=== PATIENT | female | born 1945 | race Caucasian/White ===

== ENCOUNTER 2018-03-25 08:20 | Inpatient (IN) | payer OTHER ==
[~2018-03-25] VITALS: Ht 167.6 cm; Wt 70.3 kg
[2018-03-25] MEDS ORDERED: KETOROLAC 15 MG/ML VIAL. IV ONE (09:15)
[2018-03-25] MEDS ORDERED: ONDANSETRON PF 4 MG/2 ML VIAL. IV ONE (09:15)
[2018-03-25] MEDS ORDERED: fentaNYL PF VIAL 100 MCG/2 ML VIAL IV ONE (09:15)
[2018-03-25 09:27] LABS: BASO # 0.1 x10^3/uL (0.0-0.2); BASO % 1 % (0-3); EOS # 0.1 x10^3/uL (0.0-0.7); EOS % 1 % (0-3); HEMATOCRIT 39.8 % (36.0-47.0); HEMOGLOBIN 13.8 g/dL (12.0-15.5); LYMPH # 1.9 x10^3/uL (1.0-4.8); LYMPH % 21 % (24-48); MEAN CORPUSCULAR HEMOGLOBIN 32 pg (25-35); MEAN CORPUSCULAR HGB CONC 35 g/dL (31-37); MEAN CORPUSCULAR VOLUME 91 fL (79-100); MONO # 0.4 x10^3/uL (0.0-1.1); MONO % 4 % (0-9); NEUT # 6.6 x10^3uL (1.8-7.7); NEUT % 74 % (31-73); PLATELET COUNT 247 x10^3/uL (140-400); RED BLOOD COUNT 4.36 x10^6/uL (3.50-5.40); RED CELL DISTRIBUTION WIDTH 12.9 % (11.5-14.5)
[2018-03-25] MEDS ORDERED: IV NORMAL SALINE 1000ML BAG 1,000 ML IV ONE ×2 (09:30→12:00)
[2018-03-25 09:32] LABS: BILIRUBIN,URINE NEGATIVE (NEG); CLARITY,URINE CLOUDY; COLOR,URINE YELLOW; NITRITE,URINE NEGATIVE (NEG); PROTEIN,URINE NEGATIVE (NEG-TRACE); UROBILINOGEN,URINE 0.2 mg/dL (0.2 mg/dL)
[2018-03-25 09:39] LABS: CALCIUM 9.6 mg/dL (8.5-10.1); CREATININE 1.2 mg/dL (0.6-1.0); GFR 44.3; POTASSIUM 3.8 mmol/L (3.5-5.1)
[2018-03-25 09:44] LABS: BACTERIA,URINE MANY /HPF (0-FEW); RBC,URINE TNTC /HPF (0-2); SQUAMOUS EPITHELIAL CELL,UR FEW /LPF
[2018-03-25 09:45] LABS: ALBUMIN 3.8 g/dL (3.4-5.0); TOTAL BILIRUBIN 0.7 mg/dL (0.2-1.0); TOTAL PROTEIN 7.7 g/dL (6.4-8.2)
--- NOTE | 2018-03-25 10:35 | RAD ---
Examination: CT of the abdomen pelvis without contrast HISTORY: History of right flank pain, blood in the urine COMPARISON: None available TECHNIQUE: Axial CT images of the abdomen pelvis were performed without contrast. Coronal and sagittal reformats are performed. Exposure: One or more of the following individualized dose reduction techniques were utilized for this examination: 1. Automated exposure control 2. Adjustment of the mA and/or kV according to patient size 3. Use of iterative reconstruction technique FINDINGS: Linear bibasilar lung airspace opacities likely atelectasis or infiltrates. No evidence of free air identified in the abdomen. The evaluation of the solid organs is limited due to lack of IV contrast. The evaluation of bowel is limited due to lack of oral contrast. The visualized noncontrasted liver, spleen, adrenals grossly appears unremarkable. The gallbladder is mildly distended. The stomach is mildly distended. The visualized pancreas grossly appears unremarkable. The small bowel is nondilated. Appendix is normal. Feces and gas noted in the colon. Moderate right-sided hydronephrosis and hydroureter identified with a 5 mm calculus at the junction of the right mid and distal one third of the ureter. Urinary bladder is mildly distended. The evaluation of the pelvis is limited due to streak artifact from bilateral hip prosthesis. Mild fat stranding identified about the bilateral kidneys, right greater than left. Moderate degenerative changes lumbar spine. Impression: 1. A 5 mm calculus identified in the right ureter at its mid and distal one third ureteral junction causing moderate right-sided hydronephrosis and hydroureter. Electronically signed by: Noble Calles MD (03/25/2018 10:32 AM) [place] [id number]
[2018-03-25] MEDS ORDERED: fentaNYL PF VIAL 100 MCG/2 ML VIAL IV PRN (11:30)
[2018-03-25] MEDS ORDERED: ONDANSETRON PF 4 MG/2 ML VIAL. IV PRN ×2 (11:30→12:00)
--- NOTE | 2018-03-25 11:32 | PHYS DOC ---
Past Medical History Past Medical History: Depression, GERD, Other Additional Past Medical Histor: vertigo Past Surgical History: Other Additional Past Surgical Histo: cardiac ablation Alcohol Use: Rarely Drug Use: None Adult General Chief Complaint Chief Complaint: BLOOD IN URINE HPI HPI Patient is a 72 year old F who presents with right flank pain and hematuria. Patient reports her hematuria started 2 days ago. She reports she started having severe pain in her right flank at about 4 AM this morning. It woke her from sleep. She reports history of kidney stones, but has never had to have a urologic procedure. She denies any fever or chills. She is actively vomiting on way to room from triage. Review of Systems Review of Systems Constitutional: Denies fever or chills [] Respiratory: Denies cough or shortness of breath [] Cardiovascular: Denies chest pain or palpitations GI: Denies abdominal pain. Reports nausea and vomiting and right flank pain : Denies dysuria. Reports hematuria Integument: Denies rash or skin lesions [] Neurologic: Denies headache, focal weakness or sensory changes [] All other systems were reviewed and found to be within normal limits, except as documented in this note. Current Medications Current Medications Current Medications Medications (Trade) Dose Ordered Sig/Sloane Start Time Stop Time Status Last Admin Dose Admin Fentanyl Citrate (Fentanyl 2ml Vial) 50 mcg 1X ONCE 03/25/18 09:15 03/25/18 09:21 DC 03/25/18 09:32 50 MCG Ketorolac Tromethamine (Toradol 15mg Vial) 15 mg 1X ONCE 03/25/18 09:15 03/25/18 09:21 DC 03/25/18 09:31 15 MG Ondansetron HCl (Zofran) 4 mg 1X ONCE 03/25/18 09:15 03/25/18 09:21 DC 03/25/18 09:29 4 MG Sodium Chloride 1,000 ml @ 1,000 mls/hr 1X ONCE 03/25/18 09:30 03/25/18 10:29 DC 03/25/18 09:29 1,000 MLS/HR Allergies Allergies Allergies Coded Allergies Type Severity Reaction Last Updated Verified codeine Adverse Reaction Mild "It makes me want to cry" 03/25/18 Yes Physical Exam Physical Exam Constitutional: Well developed, well nourished, no acute distress, non-toxic appearance. [] HENT: Normocephalic, atraumatic Eyes: PERRLA, EOMI, conjunctiva normal, no discharge. [] Neck: Normal range of motion, no tenderness, supple, no stridor. [] Cardiovascular:Heart rate regular rhythm, no murmur [] Lungs & Thorax: Bilateral breath sounds clear to auscultation [] Abdomen: Bowel sounds normal, soft, no tenderness Skin: Warm, dry, no erythema, no rash. [] Back: Right CVA tenderness on palpation. [] Neurologic: Alert and oriented X 3, normal motor function, normal sensory function, no focal deficits noted. [] Psychologic: Affect normal, judgement normal, mood normal. [] Current Patient Data Vital Signs Vital Signs Date Time Temp Pulse Resp B/P (MAP) Pulse Ox O2 Delivery O2 Flow Rate FiO2 03/25/18 11:00 60 18 125/59 (81) 98 Room Air 03/25/18 10:00 1.0 03/25/18 09:02 98.1 98.1 Lab Values Laboratory Tests Test 03/25/18 09:05 03/25/18 09:11 Urine Collection Type Unknown Urine Color Yellow Urine Clarity Cloudy Urine pH 6.0 Urine Specific [place] 1.025 Urine Protein Negative mg/dL (NEG-TRACE) Urine Glucose (UA) Negative mg/dL (NEG) Urine Ketones (Stick) Negative mg/dL (NEG) Urine Blood Large (NEG) Urine Nitrite Negative (NEG) Urine Bilirubin Negative (NEG) Urine Urobilinogen Dipstick 0.2 mg/dL (0.2 mg/dL) Urine Leukocyte Esterase Trace (NEG) Urine RBC Tntc /HPF (0-2) Urine WBC 1-4 /HPF (0-4) Urine Squamous Epithelial Cells Few /LPF Urine Bacteria Many /HPF (0-FEW) Urine Mucus Slight /LPF White Blood Count 9.0 x10^3/uL (4.0-11.0) Red Blood Count 4.36 x10^6/uL (3.50-5.40) Hemoglobin 13.8 g/dL (12.0-15.5) Hematocrit 39.8 % (36.0-47.0) Mean Corpuscular Volume 91 fL (79-100) Mean Corpuscular Hemoglobin 32 pg (25-35) Mean Corpuscular Hemoglobin Concent 35 g/dL (31-37) Red Cell Distribution Width 12.9 % (11.5-14.5) Platelet Count 247 x10^3/uL (140-400) Neutrophils (%) (Auto) 74 % (31-73) H Lymphocytes (%) (Auto) 21 % (24-48) L Monocytes (%) (Auto) 4 % (0-9) Eosinophils (%) (Auto) 1 % (0-3) Basophils (%) (Auto) 1 % (0-3) Neutrophils # (Auto) 6.6 x10^3uL (1.8-7.7) Lymphocytes # (Auto) 1.9 x10^3/uL (1.0-4.8) Monocytes # (Auto) 0.4 x10^3/uL (0.0-1.1) Eosinophils # (Auto) 0.1 x10^3/uL (0.0-0.7) Basophils # (Auto) 0.1 x10^3/uL (0.0-0.2) Sodium Level 143 mmol/L (136-145) Potassium Level 3.8 mmol/L (3.5-5.1) Chloride Level 104 mmol/L (98-107) Carbon Dioxide Level 28 mmol/L (21-32) Anion Gap 11 (6-14) Blood Urea Nitrogen 14 mg/dL (7-20) Creatinine 1.2 mg/dL (0.6-1.0) H Estimated GFR (Cockcroft-Gault) 44.3 BUN/Creatinine Ratio 12 (6-20) Glucose Level 140 mg/dL (70-99) H Calcium Level 9.6 mg/dL (8.5-10.1) Total Bilirubin 0.7 mg/dL (0.2-1.0) Aspartate Amino Transferase (AST) 21 U/L (15-37) Alanine Aminotransferase (ALT) 22 U/L (14-59) Alkaline Phosphatase 70 U/L (46-116) Total Protein 7.7 g/dL (6.4-8.2) Albumin 3.8 g/dL (3.4-5.0) Albumin/Globulin Ratio 1.0 (1.0-1.7) Laboratory Tests 03/25/18 09:11 Laboratory Tests 03/25/18 09:11 EKG EKG [] Radiology/Procedures Radiology/Procedures [] Course & Med Decision Making Course & Med Decision Making Pertinent Labs and Imaging studies reviewed. (See chart for details) Discussed with Dr. Rodriguez, accepts admission Discussed with urology, they will see patient in consult. Plan: Admit Dragon Disclaimer Dragon Disclaimer This electronic medical record was generated, in whole or in part, using a voice recognition dictation system. Departure Departure Impression: Primary Impression: Right kidney stone Additional Impression: UTI (urinary tract infection) Disposition: ADMITTED INPATIENT Admitting Physician: Maricruz Rodriguez Condition: IMPROVED Referrals: UNKNOWN PCP NAME (PCP) Problem Qualifiers Additional Impression: UTI (urinary tract infection) Urinary tract infection type: acute cystitis Hematuria presence: without hematuria Qualified Codes: N30.00 - Acute cystitis without hematuria JOE CAMACHO [employer] Mar 25, 2018 11:32
[2018-03-25] MEDS ORDERED: ACETAMINOPHEN 500 MG TABLET PO PRN (12:00)
[2018-03-25] MEDS: KETOROLAC 30 MG/ML VIAL. IV SCH ×3 (12:00→23:59)
[2018-03-25] MEDS ORDERED: ACETAMINOPHEN/CODEINE 300/30MG TABLET. PO PRN (12:00)
--- NOTE | 2018-03-25 12:16 | PDOC1 ---
History and Physical Date of Admission Date of Admission DATE: 03/25/18 TIME: 12:08 Identification/Chief Complaint Chief Complaint Right flank pain Source Source: Caregiver, Chart review, Patient History of Present Illness History of Present Illness Very pleasant 72-year-old female who is from out of town, she drove 1200 are 1500 miles here, started to have gross hematuria last 5 or 6 days, culminated today with right flank pain, 7 out of 10 in its most severe form. Found to have a 5 mm kidney stone distal UPJ with some hydronephrosis but normal creatinine. Also may be some UTI. She has a history of kidney stone 12 years ago that did not need any urologic intervention. She is better after IV pain management at the ER, 2 doses of IV pain medicines. She was nauseated and vomiting earlier today. No fever, normal white count. We'll admit for kidney stone with urologic consult, nothing by mouth for now until urology rounds. SHe recently had ablation for A. fib done in September 2017 and is now on Pradaxa She seen at ER, currently comfortable 2 out of 10 pain scale Past Medical History Cardiovascular: AFIB Past Surgical History Past Surgical History: Total hip replacement Family History Family History: Heart Disease, Hypertension Social History Smoke: No ALCOHOL: none Drugs: None Current Medications Current Medications Current Medications Fentanyl Citrate (Fentanyl 2ml Vial) 50 mcg 1X ONCE IV Last administered on at 09:32; Start 03/25/18 at 09:15; Stop 03/25/18 at 09:21; Status DC Ondansetron HCl (Zofran) 4 mg 1X ONCE IV Last administered on 03/25/18at 09:29 ; Start 03/25/18 at 09:15; Stop 03/25/18 at 09:21; Status DC Ketorolac Tromethamine (Toradol 15mg Vial) 15 mg 1X ONCE IV Last administered on 03/25/18at 09:31; Start 03/25/18 at 09:15; Stop 03/25/18 at 09:21; Status DC Sodium Chloride 1,000 ml @ 1,000 mls/hr 1X ONCE IV Last administered on 03/25at 09:29; Start 03/25/18 at 09:30; Stop 03/25/18 at 10:29; Status DC Ceftriaxone Sodium 50 ml @ 100 mls/hr 1X ONCE IV Last administered on at 11:55; Start 03/25/18 at 11:30; Stop 03/25/18 at 11:59; Status DC Ondansetron HCl (Zofran) 4 mg PRN Q8HRS PRN IV NAUSEA/VOMITING; Start at 11:30; Stop 03/25/18 at 11:58; Status DC Fentanyl Citrate (Fentanyl 2ml Vial) 50 mcg PRN Q2HR PRN IV PAIN; Start at 11:30; Stop 03/26/18 at 11:29 Ketorolac Tromethamine (Toradol 30mg Vial) 15 mg Q6HRS IV ; Start 03/25/18 at 12:00; Stop 03/30/18 at 11:59 Sodium Chloride 1,000 ml @ 75 mls/hr 1X ONCE IV ; Start 03/25/18 at 12:00; Stop 03/26/18 at 01:19; Status Cancel Ondansetron HCl (Zofran) 4 mg PRN Q6HRS PRN IV NAUSEA/VOMITING; Start at 12:00 Sodium Chloride 1,000 ml @ 125 mls/hr Q8H IV ; Start 03/25/18 at 13:00 Acetaminophen (Tylenol) 500 mg PRN Q6HRS PRN PO MILD PAIN / TEMP; Start at 12:00 Acetaminophen/ Codeine Phosphate (Tylenol #3) 1 tab PRN Q6HRS PRN PO MODERATE TO SEVERE PAIN; Start 03/25/18 at 12:00 Tamsulosin HCl (Flomax) 0.4 mg DAILY PO ; Start 03/26/18 at 09:00; Status UNV Tamsulosin HCl (Flomax) 0.4 mg QHS PO ; Start 03/25/18 at 21:00; Status UNV Ceftriaxone Sodium 1 gm/ Dextrose 50 ml @ 100 mls/hr Q24H IV ; Start 03/25/18 at 12:00; Status UNV Ceftriaxone Sodium (Rocephin) 1 gm Q24H IVP ; Start 03/26/18 at 12:00 Allergies Allergies: Coded Allergies: codeine (Verified Adverse Reaction, Mild, "It makes me want to cry", 03/25) ROS Review of System As per history of present illness, the rest of ROS 14 point negative Physical Exam General: Alert, Oriented X3, Cooperative, No acute distress HEENT: Atraumatic, PERRLA, EOMI Lungs: Clear to auscultation, Normal air movement Heart: S1S2, RRR, no thrills, no rubs, no gallops, no murmurs Cardiovascular: S1, S2 Breasts: Normal, Rt breast nml w/o mass, Lt breast nml w/o mass, Nipples normal Abdomen: Normal bowel sounds, Soft, No tenderness, No hepatosplenomegaly, No masses, Other (CV angle tenderness on kidney punch,rt) Extremities: No clubbing, No cyanosis, No edema, Normal pulses, No tenderness/ swelling Skin: No rashes, No breakdown, No significant lesion Neuro: Normal gait, Normal speech, Strength at 5/5 X4 ext, Normal tone, Sensation intact, Cranial nerves 3-12 NL, Reflexes 2+ Psych/Mental Status: Mental status NL, Mood NL Vitals Vitals Vital Signs Date Time Temp Pulse Resp B/P (MAP) Pulse Ox O2 Delivery O2 Flow Rate FiO2 03/25/18 09:32 24 98 Room Air 03/25/18 09:02 98.1 60 155/71 (99) 98.1 Labs Labs Laboratory Tests Test 03/25/18 09:05 03/25/18 09:11 Urine Collection Type Unknown Urine Color Yellow Urine Clarity Cloudy Urine pH 6.0 Urine Specific [place] 1.025 Urine Protein Negative mg/dL (NEG-TRACE) Urine Glucose (UA) Negative mg/dL (NEG) Urine Ketones (Stick) Negative mg/dL (NEG) Urine Blood Large (NEG) Urine Nitrite Negative (NEG) Urine Bilirubin Negative (NEG) Urine Urobilinogen Dipstick 0.2 mg/dL (0.2 mg/dL) Urine Leukocyte Esterase Trace (NEG) Urine RBC Tntc /HPF (0-2) Urine WBC 1-4 /HPF (0-4) Urine Squamous Epithelial Cells Few /LPF Urine Bacteria Many /HPF (0-FEW) Urine Mucus Slight /LPF White Blood Count 9.0 x10^3/uL (4.0-11.0) Red Blood Count 4.36 x10^6/uL (3.50-5.40) Hemoglobin 13.8 g/dL (12.0-15.5) Hematocrit 39.8 % (36.0-47.0) Mean Corpuscular Volume 91 fL (79-100) Mean Corpuscular Hemoglobin 32 pg (25-35) Mean Corpuscular Hemoglobin Concent 35 g/dL (31-37) Red Cell Distribution Width 12.9 % (11.5-14.5) Platelet Count 247 x10^3/uL (140-400) Neutrophils (%) (Auto) 74 % (31-73) Lymphocytes (%) (Auto) 21 % (24-48) Monocytes (%) (Auto) 4 % (0-9) Eosinophils (%) (Auto) 1 % (0-3) Basophils (%) (Auto) 1 % (0-3) Neutrophils # (Auto) 6.6 x10^3uL (1.8-7.7) Lymphocytes # (Auto) 1.9 x10^3/uL (1.0-4.8) Monocytes # (Auto) 0.4 x10^3/uL (0.0-1.1) Eosinophils # (Auto) 0.1 x10^3/uL (0.0-0.7) Basophils # (Auto) 0.1 x10^3/uL (0.0-0.2) Sodium Level 143 mmol/L (136-145) Potassium Level 3.8 mmol/L (3.5-5.1) Chloride Level 104 mmol/L (98-107) Carbon Dioxide Level 28 mmol/L (21-32) Anion Gap 11 (6-14) Blood Urea Nitrogen 14 mg/dL (7-20) Creatinine 1.2 mg/dL (0.6-1.0) Estimated GFR (Cockcroft-Gault) 44.3 BUN/Creatinine Ratio 12 (6-20) Glucose Level 140 mg/dL (70-99) Calcium Level 9.6 mg/dL (8.5-10.1) Total Bilirubin 0.7 mg/dL (0.2-1.0) Aspartate Amino Transf (AST/SGOT) 21 U/L (15-37) Alanine Aminotransferase (ALT/SGPT) 22 U/L (14-59) Alkaline Phosphatase 70 U/L (46-116) Total Protein 7.7 g/dL (6.4-8.2) Albumin 3.8 g/dL (3.4-5.0) Albumin/Globulin Ratio 1.0 (1.0-1.7) Laboratory Tests Test 03/25/18 09:05 03/25/18 09:11 Urine Collection Type Unknown Urine Color Yellow Urine Clarity Cloudy Urine pH 6.0 Urine Specific [place] 1.025 Urine Protein Negative mg/dL (NEG-TRACE) Urine Glucose (UA) Negative mg/dL (NEG) Urine Ketones (Stick) Negative mg/dL (NEG) Urine Blood Large (NEG) Urine Nitrite Negative (NEG) Urine Bilirubin Negative (NEG) Urine Urobilinogen Dipstick 0.2 mg/dL (0.2 mg/dL) Urine Leukocyte Esterase Trace (NEG) Urine RBC Tntc /HPF (0-2) Urine WBC 1-4 /HPF (0-4) Urine Squamous Epithelial Cells Few /LPF Urine Bacteria Many /HPF (0-FEW) Urine Mucus Slight /LPF White Blood Count 9.0 x10^3/uL (4.0-11.0) Red Blood Count 4.36 x10^6/uL (3.50-5.40) Hemoglobin 13.8 g/dL (12.0-15.5) Hematocrit 39.8 % (36.0-47.0) Mean Corpuscular Volume 91 fL (79-100) Mean Corpuscular Hemoglobin 32 pg (25-35) Mean Corpuscular Hemoglobin Concent 35 g/dL (31-37) Red Cell Distribution Width 12.9 % (11.5-14.5) Platelet Count 247 x10^3/uL (140-400) Neutrophils (%) (Auto) 74 % (31-73) Lymphocytes (%) (Auto) 21 % (24-48) Monocytes (%) (Auto) 4 % (0-9) Eosinophils (%) (Auto) 1 % (0-3) Basophils (%) (Auto) 1 % (0-3) Neutrophils # (Auto) 6.6 x10^3uL (1.8-7.7) Lymphocytes # (Auto) 1.9 x10^3/uL (1.0-4.8) Monocytes # (Auto) 0.4 x10^3/uL (0.0-1.1) Eosinophils # (Auto) 0.1 x10^3/uL (0.0-0.7) Basophils # (Auto) 0.1 x10^3/uL (0.0-0.2) Sodium Level 143 mmol/L (136-145) Potassium Level 3.8 mmol/L (3.5-5.1) Chloride Level 104 mmol/L (98-107) Carbon Dioxide Level 28 mmol/L (21-32) Anion Gap 11 (6-14) Blood Urea Nitrogen 14 mg/dL (7-20) Creatinine 1.2 mg/dL (0.6-1.0) Estimated GFR (Cockcroft-Gault) 44.3 BUN/Creatinine Ratio 12 (6-20) Glucose Level 140 mg/dL (70-99) Calcium Level 9.6 mg/dL (8.5-10.1) Total Bilirubin 0.7 mg/dL (0.2-1.0) Aspartate Amino Transf (AST/SGOT) 21 U/L (15-37) Alanine Aminotransferase (ALT/SGPT) 22 U/L (14-59) Alkaline Phosphatase 70 U/L (46-116) Total Protein 7.7 g/dL (6.4-8.2) Albumin 3.8 g/dL (3.4-5.0) Albumin/Globulin Ratio 1.0 (1.0-1.7) VTE Prophylaxis Ordered VTE Prophylaxis Devices: Yes VTE Pharmacological Prophylaxi: Yes Assessment/Plan Assessment/Plan 5 millimeter distal third ureteral junction stone with moderate hydronephrosis UTI A. fib, status post ablation, on Pradaxa (september 2017) PLAN: nothing By mouth IV fluids 125 mL an hour Flomax Rocephin Urine culture Urology consult Awaiting home meds-but we are holding Pradaxa for now seen at [facility] MD Mar 25, 2018 12:16
[2018-03-25 12:38] VITALS: BP 138/51
[2018-03-25] MEDS: IV NORMAL SALINE 1000ML BAG 1,000 ML IV SCH ×2 (13:16→20:39)
--- NOTE | 2018-03-25 13:24 | PDOC2 ---
UROLOGY CONSULT Date of Admission DATE: 03/25/18 TIME: 13:19 Reason for Consult: stone Chief Complaint right renal colic Source: Patient one day right renal colic and GH. CT a/p with 5mm distal stone w hydro. UA with bacteria cr 1.2 Pain is well controlled on my encounter. Passed a stone 12 years ago. Liver in [place], [place]. ROS ROS: RESPIRATORY: Shortness of breath denies. Cough denies. UROLOGY: Denies blood in urine. Denies difficulty urinating Past Surgical History: Total hip replacement Current Medications Current Medications Fentanyl Citrate (Fentanyl 2ml Vial) 50 mcg 1X ONCE IV Last administered on at 09:32; Start 03/25/18 at 09:15; Stop 03/25/18 at 09:21; Status DC Ondansetron HCl (Zofran) 4 mg 1X ONCE IV Last administered on 03/25/18at 09:29 ; Start 03/25/18 at 09:15; Stop 03/25/18 at 09:21; Status DC Ketorolac Tromethamine (Toradol 15mg Vial) 15 mg 1X ONCE IV Last administered on 03/25/18at 09:31; Start 03/25/18 at 09:15; Stop 03/25/18 at 09:21; Status DC Sodium Chloride 1,000 ml @ 1,000 mls/hr 1X ONCE IV Last administered on 03/25at 09:29; Start 03/25/18 at 09:30; Stop 03/25/18 at 10:29; Status DC Ceftriaxone Sodium 50 ml @ 100 mls/hr 1X ONCE IV Last administered on at 11:55; Start 03/25/18 at 11:30; Stop 03/25/18 at 11:59; Status DC Ondansetron HCl (Zofran) 4 mg PRN Q8HRS PRN IV NAUSEA/VOMITING; Start at 11:30; Stop 03/25/18 at 11:58; Status DC Fentanyl Citrate (Fentanyl 2ml Vial) 50 mcg PRN Q2HR PRN IV PAIN; Start at 11:30; Stop 03/26/18 at 11:29 Ketorolac Tromethamine (Toradol 30mg Vial) 15 mg Q6HRS IV Last administered on 03/25/18at 12:00; Start 03/25/18 at 12:00; Stop 03/30/18 at 11:59 Sodium Chloride 1,000 ml @ 75 mls/hr 1X ONCE IV ; Start 03/25/18 at 12:00; Stop 03/26/18 at 01:19; Status Cancel Ondansetron HCl (Zofran) 4 mg PRN Q6HRS PRN IV NAUSEA/VOMITING; Start at 12:00 Sodium Chloride 1,000 ml @ 125 mls/hr Q8H IV Last administered on 03/25/18at 13:16; Start 03/25/18 at 13:00 Acetaminophen (Tylenol) 500 mg PRN Q6HRS PRN PO MILD PAIN / TEMP; Start at 12:00 Acetaminophen/ Codeine Phosphate (Tylenol #3) 1 tab PRN Q6HRS PRN PO MODERATE TO SEVERE PAIN; Start 03/25/18 at 12:00 Tamsulosin HCl (Flomax) 0.4 mg DAILY PO ; Start 03/26/18 at 09:00; Status UNV Tamsulosin HCl (Flomax) 0.4 mg QHS PO ; Start 03/25/18 at 21:00 Ceftriaxone Sodium 1 gm/ Dextrose 50 ml @ 100 mls/hr Q24H IV ; Start 03/25/18 at 12:00; Status UNV Ceftriaxone Sodium (Rocephin) 1 gm Q24H IVP ; Start 03/26/18 at 12:00 Allergies: Coded Allergies: codeine (Verified Adverse Reaction, Mild, "It makes me want to cry", 03/25) Physical Examination PHYSICAL EXAMINATION: GENERAL: Gen. appearance: No acute distress. Mood/affect: Pleasant. HEENT: Head: Normocephalic, atraumatic. Airway Impairment: No. CHEST: Shape and expansion: Normal. Expansion: Normal. SKIN: General: Warm. Color: Good. GENITOURINARY:External genitalia - wnl. NEUROLOGICAL: Mental status: Alert and oriented 3. Language: Normal. VITALS Vital Signs Date Time Temp Pulse Resp B/P (MAP) Pulse Ox O2 Delivery O2 Flow Rate FiO2 03/25/18 12:38 97.8 56 16 138/51 (80) 95 Room Air 97.8 03/25/18 10:00 1.0 Labs Laboratory Tests Test 03/25/18 09:05 03/25/18 09:11 Urine Collection Type Unknown Urine Color Yellow Urine Clarity Cloudy Urine pH 6.0 Urine Specific [place] 1.025 Urine Protein Negative mg/dL (NEG-TRACE) Urine Glucose (UA) Negative mg/dL (NEG) Urine Ketones (Stick) Negative mg/dL (NEG) Urine Blood Large (NEG) Urine Nitrite Negative (NEG) Urine Bilirubin Negative (NEG) Urine Urobilinogen Dipstick 0.2 mg/dL (0.2 mg/dL) Urine Leukocyte Esterase Trace (NEG) Urine RBC Tntc /HPF (0-2) Urine WBC 1-4 /HPF (0-4) Urine Squamous Epithelial Cells Few /LPF Urine Bacteria Many /HPF (0-FEW) Urine Mucus Slight /LPF White Blood Count 9.0 x10^3/uL (4.0-11.0) Red Blood Count 4.36 x10^6/uL (3.50-5.40) Hemoglobin 13.8 g/dL (12.0-15.5) Hematocrit 39.8 % (36.0-47.0) Mean Corpuscular Volume 91 fL (79-100) Mean Corpuscular Hemoglobin 32 pg (25-35) Mean Corpuscular Hemoglobin Concent 35 g/dL (31-37) Red Cell Distribution Width 12.9 % (11.5-14.5) Platelet Count 247 x10^3/uL (140-400) Neutrophils (%) (Auto) 74 % (31-73) Lymphocytes (%) (Auto) 21 % (24-48) Monocytes (%) (Auto) 4 % (0-9) Eosinophils (%) (Auto) 1 % (0-3) Basophils (%) (Auto) 1 % (0-3) Neutrophils # (Auto) 6.6 x10^3uL (1.8-7.7) Lymphocytes # (Auto) 1.9 x10^3/uL (1.0-4.8) Monocytes # (Auto) 0.4 x10^3/uL (0.0-1.1) Eosinophils # (Auto) 0.1 x10^3/uL (0.0-0.7) Basophils # (Auto) 0.1 x10^3/uL (0.0-0.2) Sodium Level 143 mmol/L (136-145) Potassium Level 3.8 mmol/L (3.5-5.1) Chloride Level 104 mmol/L (98-107) Carbon Dioxide Level 28 mmol/L (21-32) Anion Gap 11 (6-14) Blood Urea Nitrogen 14 mg/dL (7-20) Creatinine 1.2 mg/dL (0.6-1.0) Estimated GFR (Cockcroft-Gault) 44.3 BUN/Creatinine Ratio 12 (6-20) Glucose Level 140 mg/dL (70-99) Calcium Level 9.6 mg/dL (8.5-10.1) Total Bilirubin 0.7 mg/dL (0.2-1.0) Aspartate Amino Transf (AST/SGOT) 21 U/L (15-37) Alanine Aminotransferase (ALT/SGPT) 22 U/L (14-59) Alkaline Phosphatase 70 U/L (46-116) Total Protein 7.7 g/dL (6.4-8.2) Albumin 3.8 g/dL (3.4-5.0) Albumin/Globulin Ratio 1.0 (1.0-1.7) Laboratory Tests Test 03/25/18 09:05 03/25/18 09:11 Urine Collection Type Unknown Urine Color Yellow Urine Clarity Cloudy Urine pH 6.0 Urine Specific [place] 1.025 Urine Protein Negative mg/dL (NEG-TRACE) Urine Glucose (UA) Negative mg/dL (NEG) Urine Ketones (Stick) Negative mg/dL (NEG) Urine Blood Large (NEG) Urine Nitrite Negative (NEG) Urine Bilirubin Negative (NEG) Urine Urobilinogen Dipstick 0.2 mg/dL (0.2 mg/dL) Urine Leukocyte Esterase Trace (NEG) Urine RBC Tntc /HPF (0-2) Urine WBC 1-4 /HPF (0-4) Urine Squamous Epithelial Cells Few /LPF Urine Bacteria Many /HPF (0-FEW) Urine Mucus Slight /LPF White Blood Count 9.0 x10^3/uL (4.0-11.0) Red Blood Count 4.36 x10^6/uL (3.50-5.40) Hemoglobin 13.8 g/dL (12.0-15.5) Hematocrit 39.8 % (36.0-47.0) Mean Corpuscular Volume 91 fL (79-100) Mean Corpuscular Hemoglobin 32 pg (25-35) Mean Corpuscular Hemoglobin Concent 35 g/dL (31-37) Red Cell Distribution Width 12.9 % (11.5-14.5) Platelet Count 247 x10^3/uL (140-400) Neutrophils (%) (Auto) 74 % (31-73) Lymphocytes (%) (Auto) 21 % (24-48) Monocytes (%) (Auto) 4 % (0-9) Eosinophils (%) (Auto) 1 % (0-3) Basophils (%) (Auto) 1 % (0-3) Neutrophils # (Auto) 6.6 x10^3uL (1.8-7.7) Lymphocytes # (Auto) 1.9 x10^3/uL (1.0-4.8) Monocytes # (Auto) 0.4 x10^3/uL (0.0-1.1) Eosinophils # (Auto) 0.1 x10^3/uL (0.0-0.7) Basophils # (Auto) 0.1 x10^3/uL (0.0-0.2) Sodium Level 143 mmol/L (136-145) Potassium Level 3.8 mmol/L (3.5-5.1) Chloride Level 104 mmol/L (98-107) Carbon Dioxide Level 28 mmol/L (21-32) Anion Gap 11 (6-14) Blood Urea Nitrogen 14 mg/dL (7-20) Creatinine 1.2 mg/dL (0.6-1.0) Estimated GFR (Cockcroft-Gault) 44.3 BUN/Creatinine Ratio 12 (6-20) Glucose Level 140 mg/dL (70-99) Calcium Level 9.6 mg/dL (8.5-10.1) Total Bilirubin 0.7 mg/dL (0.2-1.0) Aspartate Amino Transf (AST/SGOT) 21 U/L (15-37) Alanine Aminotransferase (ALT/SGPT) 22 U/L (14-59) Alkaline Phosphatase 70 U/L (46-116) Total Protein 7.7 g/dL (6.4-8.2) Albumin 3.8 g/dL (3.4-5.0) Albumin/Globulin Ratio 1.0 (1.0-1.7) Images ct a/p as above. Assessment/Plan 5mm right distal stone. mild hydro. agree w ivf, abx for bacteruria. -recheck ua in am. flomax for distal stone. if af vssn and ua wnl, may do URS if not passed by tomorrow. Past Medical History: Depression, GERD, Other Additional Past Medical Histor: vertigo FERNANDA COTE MD Mar 25, 2018 13:24
[2018-03-25 15:00] VITALS: BP 106/56
[2018-03-25] MEDS ORDERED: CITA10TA4 PO (17:08)
[2018-03-25] MEDS ORDERED: DABI150C PO (17:08)
[2018-03-25] MEDS ORDERED: OMEP20CA9 PO (17:08)
[2018-03-25] MEDS ORDERED: MECL25TA3 PO (17:08)
[2018-03-25] MEDS ORDERED: TEMA15CA PO (17:08)
[2018-03-25 19:00] VITALS: BP 105/50
[2018-03-25] MEDS: LACTOBACILLUS RHAMNOSUS GG 1 CAPSULE. PO SCH (20:38)
[2018-03-25] MEDS ORDERED: TAMSULOSIN 0.4 MG CAP.ER.24H. PO SCH (21:00)
[2018-03-25 22:59] VITALS: BP 124/50
[2018-03-26 03:00] VITALS: BP 121/68
[2018-03-26] MEDS: IV NORMAL SALINE 1000ML BAG 1,000 ML IV SCH ×2 (04:15→11:36)
[2018-03-26 05:05] LABS: BASO % 1 % (0-3); EOS # 0.1 x10^3/uL (0.0-0.7); EOS % 2 % (0-3); HEMATOCRIT 32.9 % (36.0-47.0); HEMOGLOBIN 11.3 g/dL (12.0-15.5); LYMPH # 1.7 x10^3/uL (1.0-4.8); LYMPH % 32 % (24-48); MEAN CORPUSCULAR HEMOGLOBIN 32 pg (25-35); MEAN CORPUSCULAR HGB CONC 34 g/dL (31-37); MEAN CORPUSCULAR VOLUME 93 fL (79-100); MONO # 0.4 x10^3/uL (0.0-1.1); MONO % 7 % (0-9); NEUT # 3.2 x10^3uL (1.8-7.7); NEUT % 59 % (31-73); PLATELET COUNT 163 x10^3/uL (140-400); RED BLOOD COUNT 3.53 x10^6/uL (3.50-5.40); RED CELL DISTRIBUTION WIDTH 13.3 % (11.5-14.5); WHITE BLOOD COUNT 5.4 x10^3/uL (4.0-11.0)
[2018-03-26 05:59] LABS: ALBUMIN 2.9 g/dL (3.4-5.0); ALBUMIN/GLOBULIN RATIO 0.9 (1.0-1.7); CALCIUM 8.2 mg/dL (8.5-10.1); CREATININE 1.3 mg/dL (0.6-1.0); GFR 40.4; POTASSIUM 3.9 mmol/L (3.5-5.1); TOTAL BILIRUBIN 0.5 mg/dL (0.2-1.0)
[2018-03-26] MEDS: KETOROLAC 30 MG/ML VIAL. IV SCH ×2 (06:16→11:36)
[2018-03-26 07:00] VITALS: BP 104/47
--- NOTE | 2018-03-26 08:51 | PDOC ---
JJ GARCIA WORD PROCESSOR TECHNICIAN 03/26/18 0851: SUBJECTIVE Subjective Patient is still hurting, had a rough night and wants surgery. She has not seen anything come out in her urine. She is NPO currently and has been since midnight. OBJECTIVE Objective Physical Exam: General appearance: Alert and Oriented, sitting in chair Head: Normocephalic, without obvious abnormality Eyes: conjunctivae/corneas clear. PERRL, EOM's intact. Fundi benign Back: + CVA pain on the right, none on the left. Lungs: regular respirations, non labored breathing Abdomen: Non-tender. Bowel sounds normal. No masses, no organomegaly Vital Signs Vital Signs Date Time Temp Pulse Resp B/P (MAP) Pulse Ox O2 Delivery O2 Flow Rate FiO2 03/26/18 03:00 97.7 53 18 121/68 (85) 93 Room Air 97.7 03/25/18 22:59 98.0 98 18 124/50 (74) 94 Room Air 1.0 98.0 03/25/18 19:00 98.2 53 18 105/50 (68) 90 Room Air 98.2 03/25/18 16:53 Room Air 03/25/18 15:00 98.0 57 16 106/56 (73) 96 Room Air 98.0 03/25/18 12:38 97.8 56 16 138/51 (80) 95 Room Air 97.8 03/25/18 11:30 60 18 124/56 (78) 98 Room Air 03/25/18 11:00 60 18 125/59 (81) 98 Room Air 03/25/18 10:30 58 18 152/58 (89) 98 Room Air 03/25/18 10:00 60 18 136/64 (88) 98 Nasal Cannula 1.0 03/25/18 09:32 24 98 Room Air 03/25/18 09:30 58 18 140/62 (88) 98 Room Air 03/25/18 09:02 98.1 60 24 155/71 (99) 98 Room Air 98.1 I & O Intake and Output 03/26/18 07:00 Intake Total 2500 ml Output Total 750 ml Balance 1750 ml Intake Oral 500 ml IV Total 2000 ml Output Urine Total 750 ml # Voids 2 # Bowel Movements 1 PHYSICAL EXAM Physical Exam Physical Exam: General appearance: Alert and Oriented, sitting in chair Head: Normocephalic, without obvious abnormality Eyes: conjunctivae/corneas clear. PERRL, EOM's intact. Fundi benign Back: + CVA pain on the right, none on the left. Lungs: regular respirations, non labored breathing Abdomen: Non-tender. Bowel sounds normal. No masses, no organomegaly ASSESSMENT/PLAN Assessment/Plan Pt has a 5 mm calculus identified in the right ureter at its mid and distal one third ureteral junction causing moderate right-sided hydronephrosis and hydroureter. She had a rough night and is still having quite a bit of pain. She is requesting a surgery. Reviewed case with Dr. Ruano, who has agreed to do Ureteroscopy with laser and stent placement at 1400 today. Consents entered for RN to obtain signature later. Pt has Rocephin ordered for noon, which should be adequate antibiotic coverage. Continue IVF, to strain urine for now. Discussed plan with attending RN. Explained risks/benefits of procedure to patient; all questions answered. Problems: (1) UTI (urinary tract infection) (2) Right kidney stone COMMENT Lab Laboratory Tests Test 03/25/18 09:05 03/25/18 09:11 03/26/18 03:45 Urine Collection Type Unknown Urine Color Yellow Urine Clarity Cloudy Urine pH 6.0 Urine Specific [place] 1.025 Urine Protein Negative mg/dL (NEG-TRACE) Urine Glucose (UA) Negative mg/dL (NEG) Urine Ketones (Stick) Negative mg/dL (NEG) Urine Blood Large (NEG) Urine Nitrite Negative (NEG) Urine Bilirubin Negative (NEG) Urine Urobilinogen Dipstick 0.2 mg/dL (0.2 mg/dL) Urine Leukocyte Esterase Trace (NEG) Urine RBC Tntc /HPF (0-2) Urine WBC 1-4 /HPF (0-4) Urine Squamous Epithelial Cells Few /LPF Urine Bacteria Many /HPF (0-FEW) Urine Mucus Slight /LPF White Blood Count 9.0 x10^3/uL (4.0-11.0) 5.4 x10^3/uL (4.0-11.0) Red Blood Count 4.36 x10^6/uL (3.50-5.40) 3.53 x10^6/uL (3.50-5.40) Hemoglobin 13.8 g/dL (12.0-15.5) 11.3 g/dL (12.0-15.5) Hematocrit 39.8 % (36.0-47.0) 32.9 % (36.0-47.0) Mean Corpuscular Volume 91 fL (79-100) 93 fL (79-100) Mean Corpuscular Hemoglobin 32 pg (25-35) 32 pg (25-35) Mean Corpuscular Hemoglobin Concent 35 g/dL (31-37) 34 g/dL (31-37) Red Cell Distribution Width 12.9 % (11.5-14.5) 13.3 % (11.5-14.5) Platelet Count 247 x10^3/uL (140-400) 163 x10^3/uL (140-400) Neutrophils (%) (Auto) 74 % (31-73) 59 % (31-73) Lymphocytes (%) (Auto) 21 % (24-48) 32 % (24-48) Monocytes (%) (Auto) 4 % (0-9) 7 % (0-9) Eosinophils (%) (Auto) 1 % (0-3) 2 % (0-3) Basophils (%) (Auto) 1 % (0-3) 1 % (0-3) Neutrophils # (Auto) 6.6 x10^3uL (1.8-7.7) 3.2 x10^3uL (1.8-7.7) Lymphocytes # (Auto) 1.9 x10^3/uL (1.0-4.8) 1.7 x10^3/uL (1.0-4.8) Monocytes # (Auto) 0.4 x10^3/uL (0.0-1.1) 0.4 x10^3/uL (0.0-1.1) Eosinophils # (Auto) 0.1 x10^3/uL (0.0-0.7) 0.1 x10^3/uL (0.0-0.7) Basophils # (Auto) 0.1 x10^3/uL (0.0-0.2) 0.0 x10^3/uL (0.0-0.2) Sodium Level 143 mmol/L (136-145) 146 mmol/L (136-145) Potassium Level 3.8 mmol/L (3.5-5.1) 3.9 mmol/L (3.5-5.1) Chloride Level 104 mmol/L (98-107) 110 mmol/L (98-107) Carbon Dioxide Level 28 mmol/L (21-32) 26 mmol/L (21-32) Anion Gap 11 (6-14) 10 (6-14) Blood Urea Nitrogen 14 mg/dL (7-20) 14 mg/dL (7-20) Creatinine 1.2 mg/dL (0.6-1.0) 1.3 mg/dL (0.6-1.0) Estimated GFR (Cockcroft-Gault) 44.3 40.4 BUN/Creatinine Ratio 12 (6-20) 11 (6-20) Glucose Level 140 mg/dL (70-99) 92 mg/dL (70-99) Calcium Level 9.6 mg/dL (8.5-10.1) 8.2 mg/dL (8.5-10.1) Total Bilirubin 0.7 mg/dL (0.2-1.0) 0.5 mg/dL (0.2-1.0) Aspartate Amino Transf (AST/SGOT) 21 U/L (15-37) 22 U/L (15-37) Alanine Aminotransferase (ALT/SGPT) 22 U/L (14-59) 20 U/L (14-59) Alkaline Phosphatase 70 U/L (46-116) 55 U/L (46-116) Total Protein 7.7 g/dL (6.4-8.2) 6.0 g/dL (6.4-8.2) Albumin 3.8 g/dL (3.4-5.0) 2.9 g/dL (3.4-5.0) Albumin/Globulin Ratio 1.0 (1.0-1.7) 0.9 (1.0-1.7) Imaging CT ABD/Pelvis done 03/25/18: 1. A 5 mm calculus identified in the right ureter at its mid and distal one third ureteral junction causing moderate right-sided hydronephrosis and hydroureter. MARIE RUANO MD 03/26/18 0623: ASSESSMENT/PLAN Assessment/Plan Patient seen and examined. Agree with assessment and plan. CT images reviewed - 5 mm distal right ureter stone. I reviewed management options with the patient. She wants to proceed with right ureteroscopy, laser of stone, stent placement. Risks of bleeding, infection, need for additional procedures, injury to urologic structures, anesthesia issues discussed and she wants to proceed. Consent signed, all questions answered. Problem Qualifiers (1) UTI (urinary tract infection): Urinary tract infection type: acute cystitis Hematuria presence: without hematuria Qualified Codes: N30.00 - Acute cystitis without hematuria JJ GARCIA APRN Mar 26, 2018 08:51 MARIE RUANO MD Mar 26, 2018 14:06
[2018-03-26] MEDS ORDERED: IOHEXOL 300 MG/ML 100ML VIAL. ONE (08:52)
[2018-03-26] MEDS ORDERED: TAMSULOSIN 0.4 MG CAP.ER.24H. PO SCH (09:00)
[2018-03-26] MEDS: LACTOBACILLUS RHAMNOSUS GG 1 CAPSULE. PO SCH (09:00)
[2018-03-26] MEDS ORDERED: IV RINGERS,LACTATED 1000ML 1,000 ML IV SCH (09:40)
[2018-03-26] MEDS ORDERED: LIDOCAINE 1% PF 2 ML VIAL. ID PRN (09:45)
[2018-03-26] MEDS ORDERED: PROCHLORPERAZINE 10 MG/2 ML VIAL. IV PRN (09:45)
[2018-03-26] MEDS ORDERED: MORPHINE SULFATE 2 MG/ML VIAL. IV PRN (09:45)
[2018-03-26] MEDS ORDERED: fentaNYL PF VIAL 100 MCG/2 ML VIAL IV PRN ×2 (09:45)
[2018-03-26] MEDS ORDERED: HYDROmorphone 2 MG/ML VIAL IV PRN (09:45)
[2018-03-26 11:00] VITALS: BP 107/57
--- NOTE | 2018-03-26 11:00 | PDOC ---
PROGRESS NOTES Chief Complaint Chief Complaint 5 millimeter distal third ureteral junction stone with moderate hydronephrosis UTI A. fib, status post ablation, on Pradaxa (September 2017) History of Present Illness History of Present Illness Pt has not yet passed kidney stone. She is scheduled to have cystoscopy today at 2 PM. Currently on narcotics and not complaining of any pain at this time. Pt seen and examined Pt alert and oriented; affect appropriate VSS DW nursing Vitals Vitals Vital Signs Date Time Temp Pulse Resp B/P (MAP) Pulse Ox O2 Delivery O2 Flow Rate FiO2 03/26/18 07:00 97.9 58 20 104/47 (66) 94 Room Air 97.9 03/25/18 22:59 1.0 Physical Exam General: Alert, Oriented X3, Cooperative, No acute distress Abdomen: Normal bowel sounds, Soft, No tenderness, No hepatosplenomegaly, No masses, Other (CV angle tenderness on kidney punch,rt) Extremities: No clubbing, No cyanosis, No edema, Normal pulses, No tenderness/ swelling Skin: No rashes, No breakdown, No significant lesion Labs LABS Laboratory Tests Test 03/26/18 03:45 White Blood Count 5.4 x10^3/uL (4.0-11.0) Red Blood Count 3.53 x10^6/uL (3.50-5.40) Hemoglobin 11.3 g/dL (12.0-15.5) Hematocrit 32.9 % (36.0-47.0) Mean Corpuscular Volume 93 fL (79-100) Mean Corpuscular Hemoglobin 32 pg (25-35) Mean Corpuscular Hemoglobin Concent 34 g/dL (31-37) Red Cell Distribution Width 13.3 % (11.5-14.5) Platelet Count 163 x10^3/uL (140-400) Neutrophils (%) (Auto) 59 % (31-73) Lymphocytes (%) (Auto) 32 % (24-48) Monocytes (%) (Auto) 7 % (0-9) Eosinophils (%) (Auto) 2 % (0-3) Basophils (%) (Auto) 1 % (0-3) Neutrophils # (Auto) 3.2 x10^3uL (1.8-7.7) Lymphocytes # (Auto) 1.7 x10^3/uL (1.0-4.8) Monocytes # (Auto) 0.4 x10^3/uL (0.0-1.1) Eosinophils # (Auto) 0.1 x10^3/uL (0.0-0.7) Basophils # (Auto) 0.0 x10^3/uL (0.0-0.2) Sodium Level 146 mmol/L (136-145) Potassium Level 3.9 mmol/L (3.5-5.1) Chloride Level 110 mmol/L (98-107) Carbon Dioxide Level 26 mmol/L (21-32) Anion Gap 10 (6-14) Blood Urea Nitrogen 14 mg/dL (7-20) Creatinine 1.3 mg/dL (0.6-1.0) Estimated GFR (Cockcroft-Gault) 40.4 BUN/Creatinine Ratio 11 (6-20) Glucose Level 92 mg/dL (70-99) Calcium Level 8.2 mg/dL (8.5-10.1) Total Bilirubin 0.5 mg/dL (0.2-1.0) Aspartate Amino Transf (AST/SGOT) 22 U/L (15-37) Alanine Aminotransferase (ALT/SGPT) 20 U/L (14-59) Alkaline Phosphatase 55 U/L (46-116) Total Protein 6.0 g/dL (6.4-8.2) Albumin 2.9 g/dL (3.4-5.0) Albumin/Globulin Ratio 0.9 (1.0-1.7) Review of Systems Review of Systems Pt denies any pain, denies any weakness. Assessment and Plan Assessmemt and Plan Assessment: 5 millimeter distal third ureteral junction stone with moderate hydronephrosis UTI A. fib, status post ablation, on Pradaxa (September 2017 Plan: PRN narcotics for pain F/u urology; appreciate input Awaiting cystoscopy Probable d/c post-cystoscopy, pending urology approval Comment Review of Relevant I have reviewed the following items cece (where applicable) has been applied. Labs Laboratory Tests Test 03/25/18 09:05 03/25/18 09:11 03/26/18 03:45 Urine Collection Type Unknown Urine Color Yellow Urine Clarity Cloudy Urine pH 6.0 Urine Specific [place] 1.025 Urine Protein Negative mg/dL (NEG-TRACE) Urine Glucose (UA) Negative mg/dL (NEG) Urine Ketones (Stick) Negative mg/dL (NEG) Urine Blood Large (NEG) Urine Nitrite Negative (NEG) Urine Bilirubin Negative (NEG) Urine Urobilinogen Dipstick 0.2 mg/dL (0.2 mg/dL) Urine Leukocyte Esterase Trace (NEG) Urine RBC Tntc /HPF (0-2) Urine WBC 1-4 /HPF (0-4) Urine Squamous Epithelial Cells Few /LPF Urine Bacteria Many /HPF (0-FEW) Urine Mucus Slight /LPF White Blood Count 9.0 x10^3/uL (4.0-11.0) 5.4 x10^3/uL (4.0-11.0) Red Blood Count 4.36 x10^6/uL (3.50-5.40) 3.53 x10^6/uL (3.50-5.40) Hemoglobin 13.8 g/dL (12.0-15.5) 11.3 g/dL (12.0-15.5) Hematocrit 39.8 % (36.0-47.0) 32.9 % (36.0-47.0) Mean Corpuscular Volume 91 fL (79-100) 93 fL (79-100) Mean Corpuscular Hemoglobin 32 pg (25-35) 32 pg (25-35) Mean Corpuscular Hemoglobin Concent 35 g/dL (31-37) 34 g/dL (31-37) Red Cell Distribution Width 12.9 % (11.5-14.5) 13.3 % (11.5-14.5) Platelet Count 247 x10^3/uL (140-400) 163 x10^3/uL (140-400) Neutrophils (%) (Auto) 74 % (31-73) 59 % (31-73) Lymphocytes (%) (Auto) 21 % (24-48) 32 % (24-48) Monocytes (%) (Auto) 4 % (0-9) 7 % (0-9) Eosinophils (%) (Auto) 1 % (0-3) 2 % (0-3) Basophils (%) (Auto) 1 % (0-3) 1 % (0-3) Neutrophils # (Auto) 6.6 x10^3uL (1.8-7.7) 3.2 x10^3uL (1.8-7.7) Lymphocytes # (Auto) 1.9 x10^3/uL (1.0-4.8) 1.7 x10^3/uL (1.0-4.8) Monocytes # (Auto) 0.4 x10^3/uL (0.0-1.1) 0.4 x10^3/uL (0.0-1.1) Eosinophils # (Auto) 0.1 x10^3/uL (0.0-0.7) 0.1 x10^3/uL (0.0-0.7) Basophils # (Auto) 0.1 x10^3/uL (0.0-0.2) 0.0 x10^3/uL (0.0-0.2) Sodium Level 143 mmol/L (136-145) 146 mmol/L (136-145) Potassium Level 3.8 mmol/L (3.5-5.1) 3.9 mmol/L (3.5-5.1) Chloride Level 104 mmol/L (98-107) 110 mmol/L (98-107) Carbon Dioxide Level 28 mmol/L (21-32) 26 mmol/L (21-32) Anion Gap 11 (6-14) 10 (6-14) Blood Urea Nitrogen 14 mg/dL (7-20) 14 mg/dL (7-20) Creatinine 1.2 mg/dL (0.6-1.0) 1.3 mg/dL (0.6-1.0) Estimated GFR (Cockcroft-Gault) 44.3 40.4 BUN/Creatinine Ratio 12 (6-20) 11 (6-20) Glucose Level 140 mg/dL (70-99) 92 mg/dL (70-99) Calcium Level 9.6 mg/dL (8.5-10.1) 8.2 mg/dL (8.5-10.1) Total Bilirubin 0.7 mg/dL (0.2-1.0) 0.5 mg/dL (0.2-1.0) Aspartate Amino Transf (AST/SGOT) 21 U/L (15-37) 22 U/L (15-37) Alanine Aminotransferase (ALT/SGPT) 22 U/L (14-59) 20 U/L (14-59) Alkaline Phosphatase 70 U/L (46-116) 55 U/L (46-116) Total Protein 7.7 g/dL (6.4-8.2) 6.0 g/dL (6.4-8.2) Albumin 3.8 g/dL (3.4-5.0) 2.9 g/dL (3.4-5.0) Albumin/Globulin Ratio 1.0 (1.0-1.7) 0.9 (1.0-1.7) Laboratory Tests Test 03/26/18 03:45 White Blood Count 5.4 x10^3/uL (4.0-11.0) Red Blood Count 3.53 x10^6/uL (3.50-5.40) Hemoglobin 11.3 g/dL (12.0-15.5) Hematocrit 32.9 % (36.0-47.0) Mean Corpuscular Volume 93 fL (79-100) Mean Corpuscular Hemoglobin 32 pg (25-35) Mean Corpuscular Hemoglobin Concent 34 g/dL (31-37) Red Cell Distribution Width 13.3 % (11.5-14.5) Platelet Count 163 x10^3/uL (140-400) Neutrophils (%) (Auto) 59 % (31-73) Lymphocytes (%) (Auto) 32 % (24-48) Monocytes (%) (Auto) 7 % (0-9) Eosinophils (%) (Auto) 2 % (0-3) Basophils (%) (Auto) 1 % (0-3) Neutrophils # (Auto) 3.2 x10^3uL (1.8-7.7) Lymphocytes # (Auto) 1.7 x10^3/uL (1.0-4.8) Monocytes # (Auto) 0.4 x10^3/uL (0.0-1.1) Eosinophils # (Auto) 0.1 x10^3/uL (0.0-0.7) Basophils # (Auto) 0.0 x10^3/uL (0.0-0.2) Sodium Level 146 mmol/L (136-145) Potassium Level 3.9 mmol/L (3.5-5.1) Chloride Level 110 mmol/L (98-107) Carbon Dioxide Level 26 mmol/L (21-32) Anion Gap 10 (6-14) Blood Urea Nitrogen 14 mg/dL (7-20) Creatinine 1.3 mg/dL (0.6-1.0) Estimated GFR (Cockcroft-Gault) 40.4 BUN/Creatinine Ratio 11 (6-20) Glucose Level 92 mg/dL (70-99) Calcium Level 8.2 mg/dL (8.5-10.1) Total Bilirubin 0.5 mg/dL (0.2-1.0) Aspartate Amino Transf (AST/SGOT) 22 U/L (15-37) Alanine Aminotransferase (ALT/SGPT) 20 U/L (14-59) Alkaline Phosphatase 55 U/L (46-116) Total Protein 6.0 g/dL (6.4-8.2) Albumin 2.9 g/dL (3.4-5.0) Albumin/Globulin Ratio 0.9 (1.0-1.7) Medications Current Medications Fentanyl Citrate (Fentanyl 2ml Vial) 50 mcg 1X ONCE IV Last administered on at 09:32; Start 03/25/18 at 09:15; Stop 03/25/18 at 09:21; Status DC Ondansetron HCl (Zofran) 4 mg 1X ONCE IV Last administered on 03/25/18at 09:29 ; Start 03/25/18 at 09:15; Stop 03/25/18 at 09:21; Status DC Ketorolac Tromethamine (Toradol 15mg Vial) 15 mg 1X ONCE IV Last administered on 03/25/18at 09:31; Start 03/25/18 at 09:15; Stop 03/25/18 at 09:21; Status DC Sodium Chloride 1,000 ml @ 1,000 mls/hr 1X ONCE IV Last administered on 03/25at 09:29; Start 03/25/18 at 09:30; Stop 03/25/18 at 10:29; Status DC Ceftriaxone Sodium 50 ml @ 100 mls/hr 1X ONCE IV Last administered on at 11:55; Start 03/25/18 at 11:30; Stop 03/25/18 at 11:59; Status DC Ondansetron HCl (Zofran) 4 mg PRN Q8HRS PRN IV NAUSEA/VOMITING; Start at 11:30; Stop 03/25/18 at 11:58; Status DC Fentanyl Citrate (Fentanyl 2ml Vial) 50 mcg PRN Q2HR PRN IV PAIN; Start at 11:30; Stop 03/26/18 at 11:29 Ketorolac Tromethamine (Toradol 30mg Vial) 15 mg Q6HRS IV Last administered on 03/26/18at 06:16; Start 03/25/18 at 12:00; Stop 03/30/18 at 11:59 Sodium Chloride 1,000 ml @ 75 mls/hr 1X ONCE IV ; Start 03/25/18 at 12:00; Stop 03/26/18 at 01:19; Status Cancel Ondansetron HCl (Zofran) 4 mg PRN Q6HRS PRN IV NAUSEA/VOMITING Last administered on 03/25/18at 22:47; Start 03/25/18 at 12:00 Sodium Chloride 1,000 ml @ 125 mls/hr Q8H IV Last administered on 03/26/18at 04:15; Start 03/25/18 at 13:00 Acetaminophen (Tylenol) 500 mg PRN Q6HRS PRN PO MILD PAIN / TEMP; Start at 12:00 Acetaminophen/ Codeine Phosphate (Tylenol #3) 1 tab PRN Q6HRS PRN PO MODERATE TO SEVERE PAIN; Start 03/25/18 at 12:00 Tamsulosin HCl (Flomax) 0.4 mg DAILY PO ; Start 03/26/18 at 09:00; Status UNV Tamsulosin HCl (Flomax) 0.4 mg QHS PO Last administered on 03/25/18at 20:38; Start 03/25/18 at 21:00 Ceftriaxone Sodium 1 gm/ Dextrose 50 ml @ 100 mls/hr Q24H IV ; Start 03/25/18 at 12:00; Status UNV Ceftriaxone Sodium (Rocephin) 1 gm Q24H IVP ; Start 03/26/18 at 12:00 Lactobacillus Rhamnosus (Culturelle) 1 cap BID PO Last administered on at 20:38; Start 03/25/18 at 21:00 Fentanyl Citrate (Fentanyl 2ml Vial) 25 mcg PRN Q5MIN PRN IV MILD PAIN; Start 03/26/18 at 09:45; Stop 03/26/18 at 18:00 Fentanyl Citrate (Fentanyl 2ml Vial) 50 mcg PRN Q5MIN PRN IV MODERATE TO SEVERE PAIN; Start 03/26/18 at 09:45; Stop 03/26/18 at 18:00 Morphine Sulfate (Morphine Sulfate) 1 mg PRN Q10MIN PRN IV SEVERE PAIN; Start 03/26/18 at 09:45; Stop 03/27/18 at 09:44 Ringer's Solution 1,000 ml @ 30 mls/hr Q24H IV ; Start 03/26/18 at 09:40; Stop 03/26/18 at 21:39 Lidocaine HCl (Xylocaine-Mpf 1% 2ml Vial) 2 ml 1X PRN PRN ID IV START; Start 03/26/18 at 09:45; Stop 03/26/18 at 18:00 Hydromorphone HCl (Dilaudid) 0.5 mg PRN Q10MIN PRN IV SEV PAIN, Second choice; Start 03/26/18 at 09:45; Stop 03/26/18 at 18:00 Prochlorperazine Edisylate (Compazine) 5 mg PACU PRN PRN IV NAUSEA, MRX1; Start 03/26/18 at 09:45; Stop 03/26/18 at 18:00 Iohexol (Omnipaque 300 Mg/ml) 100 ml STK-MED ONCE .ROUTE ; Start 03/26/18 at 08 :52; Stop 03/26/18 at 09:53; Status DC Active Scripts Active Reported Meclizine Hcl 25 Mg Tablet 25 Mg PO HS Omeprazole 20 Mg Capsule.dr 20 Mg PO DAILY Citalopram Hbr (Citalopram Hydrobromide) 10 Mg Tablet 0.5 Tab PO DAILY Temazepam 15 Mg Capsule 15 Mg PO HS PRN Pradaxa (Dabigatran Etexilate Mesylate) 150 Mg Capsule 150 Mg PO BID Vitals/I & O Vital Sign - Last 24 Hours 03/25/18 03/25/18 03/25/18 03/25/18 11:00 11:30 12:38 15:00 Temp 97.8 98.0 97.8 98.0 Pulse 60 60 56 57 Resp 18 18 16 16 B/P (MAP) 125/59 (81) 124/56 (78) 138/51 (80) 106/56 (73) Pulse Ox 98 98 95 96 O2 Delivery Room Air Room Air Room Air Room Air 03/25/18 03/25/18 03/25/18 03/26/18 16:53 19:00 22:59 03:00 Temp 98.2 98.0 97.7 98.2 98.0 97.7 Pulse 53 98 53 Resp 18 18 18 B/P (MAP) 105/50 (68) 124/50 (74) 121/68 (85) Pulse Ox 90 94 93 O2 Delivery Room Air Room Air Room Air Room Air O2 Flow Rate 1.0 03/26/18 07:00 Temp 97.9 97.9 Pulse 58 Resp 20 B/P (MAP) 104/47 (66) Pulse Ox 94 O2 Delivery Room Air Intake and Output 03/25/18 03/25/18 03/26/18 15:00 23:00 07:00 Intake Total 1500 ml 1000 ml Output Total 750 ml Balance 750 ml 1000 ml YVONNE SOLO III DO Mar 26, 2018 11:00
[2018-03-26 11:08] LABS: BILIRUBIN,URINE NEGATIVE (NEG); CLARITY,URINE TURBID; COLOR,URINE YELLOW; NITRITE,URINE NEGATIVE (NEG); PROTEIN,URINE NEGATIVE (NEG-TRACE); UROBILINOGEN,URINE 0.2 mg/dL (0.2 mg/dL)
[2018-03-26 11:22] LABS: AMORPHOUS SEDIMENT,UR PRESENT /HPF; SQUAMOUS EPITHELIAL CELL,UR FEW /LPF
[2018-03-26 11:23] LABS: BACTERIA,URINE 0 /HPF (0-FEW); RBC,URINE 0 /HPF (0-2); WBC,URINE 0 /HPF (0-4)
[2018-03-26] MEDS ORDERED: cefTRIAXone IV Push 1 GM VIAL. IVP SCH (12:00)
[2018-03-26] MEDS ORDERED: LIDOCAINE 2% PF Vial for OR 5 ML VIAL. ONE (13:10)
[2018-03-26] MEDS ORDERED: PROPOFOL 20 ML IV ONE (13:10)
[2018-03-26] MEDS ORDERED: FAMOTIDINE 20 MG/2 ML VIAL ONE ×2 (13:10→14:26)
[2018-03-26] MEDS ORDERED: DEXAMETHASONE SOD PHOS 20 MG/5 ML VIAL. ONE (13:10)
[2018-03-26] MEDS ORDERED: ONDANSETRON PF 4 MG/2 ML VIAL. ONE (13:10)
[2018-03-26] MEDS ORDERED: fentaNYL PF VIAL 100 MCG/2 ML VIAL ONE (13:12)
[2018-03-26] MEDS ORDERED: ePHEDrine PF IN SALINE 50 MG/5 ML DISP.SYRIN IV ONE (14:26)
[2018-03-26] MEDS ORDERED: DESFLURANE 31 TO 60 MINUTES IH ONE (14:50)
--- NOTE | 2018-03-26 14:54 | PDOC4 ---
OPERATIVE NOTE Date: Date: Mar 26, 2018 Pre-Op Diagnosis: right ureter stone Post-Op Diagnosis: same Procedure Performed: right ureteroscopy, laser of stone, stent placement, retrograde pyelogram Surgeon: Marie Ruano MD Anesthesia Type: general Blood Loss: 0 Specimans Obtained: right ureter stone Findings: right distal ureter stone right hydronephrosis Complications: none Operative Note: see dictation. ok to d/c home. f/u next week in Urology clinic for stent removal MARIE RUANO MD Mar 26, 2018 14:54
--- NOTE | 2018-03-26 14:56 | DISCH ---
DISCHARGE INSTRUCTIONS Condition on Discharge Condition on Discharge: Stable Activity After Discharge Activity Instructions for Disc: No restrictions Diet after Discharge Diet after Discharge: Regular Contacting the DRMaggie after DC Call your doctor for: Concerns you may have Follow-Up Follow up with: Dr. Ruano's office 04/01/18 for stent removal. Call [phone] for appt MARIE RUANO MD Mar 26, 2018 14:56
[2018-03-26] MEDS ORDERED: SULF1TAB24 PO (14:58)
[2018-03-26] MEDS ORDERED: OXYB5TAB7 PO (14:58)
--- NOTE | 2018-03-26 15:20 | OP ---
DATE OF SURGERY: 03/26/2018 SURGEON: Marie Ruano MD [employer]KER: None. PREOPERATIVE DIAGNOSIS: Right ureteral stone. POSTOPERATIVE DIAGNOSIS: Right ureteral stone. PROCEDURE PERFORMED: Right ureteroscopy with laser of ureteral stone, stent placement, right retrograde pyelogram. ANESTHESIA TYPE: General. INDICATIONS: This is a 72-year-old female, admitted for right ureteral stone. She continued to have pain and elected to undergo surgical treatment. Informed consent was obtained. DESCRIPTION OF PROCEDURE: The patient taken to the operating room and general anesthesia was induced. She was placed in the dorsal lithotomy position and sterilely prepped and draped. A timeout was performed. A rigid cystoscope was advanced through the urethra and into the bladder. The bladder was inspected, there was a small amount of blood noted, but otherwise no visible abnormalities. A guidewire was advanced into the right ureter under fluoroscopic guidance, stone was identified in the distal right ureter and the wire was advanced up into the right renal pelvis. The scope was removed. The right ureteral orifice was tight and a rigid ureteroscope would not advance in. The distal right ureter was then dilated under fluoroscopic guidance with an 11-Algerian inner sheath of an access sheath, without any difficulty. The access sheath was removed. The rigid ureteroscope was then advanced alongside the wire up to the stone in the distal right ureter. There was no sign of any ureteral injury. The stone was then fragmented into multiple tiny fragments, largest fragment was the diameter of the guidewire, 0.2 mm. Most of the stone fragments then migrated into the bladder. The scope was removed. The guidewire was backloaded over the cystoscope. A 6 x 24 cm stent was attempted to be placed, but was too short. A 6 x 26 cm stent was then placed under fluoroscopic guidance, with retrograde pyelogram performed prior to that to demonstrate the location of the renal pelvis as well as mild right hydronephrosis. Appropriate curl was seen in the renal pelvis on fluoroscopy and visually within the bladder on cystoscopy. The bladder contents were emptied. Two small stone fragments were found and sent as a specimen. The patient was then awakened and taken to the recovery room in stable condition. BLOOD LOSS: None. COMPLICATIONS: None. SPECIMEN: Right ureter stone fragments. DISPOSITION: The patient can be discharged home, will follow up next week for cystoscopy in the office and stent removal. This was discussed with the patient prior to the surgery. MARIE RUANO MD DR: CIERA/awilda JOB#: [id number] / [id number]
[2018-03-26 15:52] VITALS: BP 153/60
--- NOTE | 2018-04-02 12:57 | DS ---
DATE OF DISCHARGE: 03/26/2018 ADMISSION DIAGNOSES: Kidney stone. DISCHARGE DIAGNOSIS: Resolving kidney stone. HOSPITAL COURSE: The patient is a pleasant 72-year-old female who presented with a kidney stone. She was admitted. We consulted Urology. She went for cystoscopy and ureteral stent. The next day, she was doing great. We discharged her home. DISPOSITION: Home. ACTIVITY: As tolerated. DIET: Low sodium. MEDICATIONS: Please see the MRAD. TOTAL TIME: 34 minutes. YVONNE SOLO DO DR: DIONISIO/awilda JOB#: [id number] / [id number]
== END 2018-03-26 18:39 | disposition home or self-care (01) | DRG 660 ==
LOC: ER 08:20 → 5 SOUTH 11:15
PROVIDERS: ADMIT Internal Medicine; ATTEND Internal Medicine
PROC: 0TC68ZZ Extirpation of Matter from Right Ureter, Via Natural or Artificial Opening Endoscopic (ICD-10-PCS; 2018-03-26)
PROC: BT1D1ZZ Fluoroscopy of Right Kidney, Ureter and Bladder using Low Osmolar Contrast (ICD-10-PCS; 2018-03-26)
PROC: 0T768DZ Dilation of Right Ureter with Intraluminal Device, Via Natural or Artificial Opening Endoscopic (ICD-10-PCS; principal; 2018-03-26 14:00)
DX: N13.6 Pyonephrosis (principal); N20.2 Calculus of kidney with calculus of ureter; I48.91 Unspecified atrial fibrillation; K21.9 Gastro-esophageal reflux disease without esophagitis; F32.9 Major depressive disorder, single episode, unspecified; R31.0 Gross hematuria; Z96.649 Presence of unspecified artificial hip joint; Z82.49 Family history of ischemic heart disease and other diseases of the circulatory system; Z87.442 Personal history of urinary calculi; Z79.899 Other long term (current) drug therapy; Z88.8 Allergy status to other drugs, medicaments and biological substances
CPT/HCPCS: 36415; 74176; 74420; 80053; 81001; 85025; 87086; 96374; C1713; C2617; J0690; J0696; J1100; J1885; J2001; J2405; J2704; J3010; J7030; Q9967; S0028; 99285-25